=== PATIENT | female | born 1950 | race African-American/Black ===

== ENCOUNTER 2016-09-03 10:47 | Emergency (ER) | payer SELFPAY | END 2016-09-03 10:58 | disposition home or self-care (01) | LOC: ER 10:47 | DX: J02.9 Acute pharyngitis, unspecified (principal); H66.90 Otitis media, unspecified, unspecified ear; Z95.5 Presence of coronary angioplasty implant and graft; Z88.2 Allergy status to sulfonamides | CPT/HCPCS: 99283 ==